=== PATIENT | female | born 1955 | race Caucasian/White ===

== ENCOUNTER → 2017-05-06 | Outpatient (CLI) | payer OTHER ==
[2017-05-06 12:57] LABS: CHOLESTEROL/HDL RATIO 3.1
== END | disposition home or self-care (01) ==
LOC: C.LABPBG 09:27
PROVIDERS: ATTEND Family Medicine
DX: Z13.220 Encounter for screening for lipoid disorders (principal)

== ENCOUNTER → 2017-07-01 | Outpatient (CLI) | payer OTHER | END | disposition home or self-care (01) | LOC: C.PAPS 16:43 | PROVIDERS: ATTEND Obstetrics & Gynecology | DX: Z12.4 Encounter for screening for malignant neoplasm of cervix (principal) ==

== ENCOUNTER 2021-01-21 09:57 | Observation (INO) ==
[2021-01-21 11:06] LABS: Hematocrit (blood only) 34.2 % (37-47); Hemoglobin 12.5 g/dL (12.0-16.0); Immature Granulocytes # (auto) 0.02 K/uL (0.00-0.02); Immature Granulocytes % (auto) 0.2 %; Lymphocytes # (auto) 0.63 K/uL (1.2-3.4); Lymphocytes % (auto) 6.7 %; Mean Corpuscular Hemoglobin 31.3 pg (25-34); Mean Corpuscular Hgb Conc 36.5 g/dL (32-36); Mean Corpuscular Volume 85.7 fL (80-100); Mean Platelet Volume 9.2 fL (7.4-10.4); Monocytes # (auto) 0.35 K/uL (0.11-0.59); Monocytes % (auto) 3.7 %; Neutrophils # (auto) 8.46 K/uL (1.4-6.5); Neutrophils % (auto) 89.4 %; Platelet Count 325 K/uL (130-400); RDW Coefficient of Variation 12.7 % (11.5-14.5); RDW Standard Deviation 40.4 fL (36.4-46.3); Red Blood Count 3.99 M/uL (4.2-5.4); White Blood Count 9.46 K/uL (4.8-10.8)
[2021-01-21 11:18] LABS: Partial Thromboplastin Time 26.8 Seconds (21.0-31.0); Prothrombin Time 10.3 Seconds (9.0-12.0)
[2021-01-21 11:20] LABS: D Dimer 1830 ug/L FEU (0-500)
[2021-01-21 11:25] LABS: Alanine Aminotransferase 24 U/L (12-78); Aspartate Aminotransferase 16 U/L (15-37); BUN Creatinine Ratio 17.8 (10-20); Blood Urea Nitrogen 16 mg/dl (7-18); Calcium 8.5 mg/dl (8.5-10.1); Carbon Dioxide 21 mmol/L (21-32); Chloride 105 mmol/L (98-107); Creatinine Clr Calc Pharmacy 54.1 ml/min; Est GFR (Non-African American) 69.9; Glucose 91 mg/dl (70-99); Magnesium 2.1 mg/dl (1.8-2.4); Potassium 3.7 mmol/L (3.5-5.1); Sodium 134 mmol/L (136-145)
[2021-01-21 11:30] LABS: Albumin Globulin Ratio 0.7 (0.9-2); Alkaline Phosphatase 52 U/L (45-117); Bilirubin,Total 1.1 mg/dl (0.2-1); Ferritin 480.3 ng/ml (8-388); Globulin 4.5 gm/dl (2.5-4.0); Total Protein 7.5 gm/dl (6.4-8.2); Troponin I < 0.015 ng/ml (0-0.045)
[2021-01-21] MEDS ORDERED: OPTIRAY 350 500ml IV ONE (11:44)
--- NOTE | 2021-01-21 12:06 | CT Scan Report ---
CT ANGIOGRAPHY OF THE CHEST, PULMONARY EMBOLUS PROTOCOL CLINICAL HISTORY: Shortness of breath. Cough. Covid. COMPARISON STUDY: Chest CT September 11, 2019. TECHNIQUE: Following IV administration of 114 mL of Optiray, helical axial images of the chest were o btained utilizing the pulmonary embolus protocol. Maximal intensity projections and sagittal and cor onal reformats were viewed on an independent 3D workstation. IV contrast was administered without co mplication. Automated exposure control was utilized for the study. A dose lowering technique was ut ilized adhering to the principles of ALARA. CT DOSE: 434.25 mGycm FINDINGS: No pulmonary emboli are identified. The size of the heart is normal. There is no pericardi al effusion. No thoracic aortic dissection is present. There is no pneumothorax or pleural effusion. The central airways are patent. Mildly enlarged right hilar lymph nodes are likely reactive. Moderate to extensive airspace opacities are noted throughout the lungs with a lower lobe predominance. There is no cavitation. Hepatic lesions were present on prior exam. These are likely benign. IMPRESSION: 1. No pulmonary emboli identified. 2. Moderate to extensive airspace opacities suggestive of viral pneumonia. ACT 112: Negative or not required by law. Electronically signed by: Jackson Guerrero M.D. 01/21/2021 12:05 PM
[2021-01-21 12:13] LABS: Influenza A virus by PCR Negative (Neg); Influenza B virus by PCR Negative (Neg); RSV by PCR Negative (Neg)
[2021-01-21 12:28] LABS: SARS CoV2 RNA(COVID-19) InHosp POSITIVE (Negative)
--- NOTE | 2021-01-21 13:02 | Electrocardiogram Report ---
Test Reason : Blood Pressure : / mmHG Vent. Rate : 079 BPM Atrial Rate : 079 BPM P-R Int : 142 ms QRS Dur : 072 ms QT Int : 376 ms P-R-T Axes : 058 035 048 degrees QTc Int : 431 ms Sinus rhythm with Premature supraventricular complexes Low voltage QRS Borderline ECG When compared with ECG of 23-JUN-2018 22:51, Premature supraventricular complexes are now Present Confirmed by Kulwinder Casey ([id number]) on 01/21/2021 1:02:31 PM Referred By: Confirmed By:Kulwinder Casey
--- NOTE | 2021-01-21 15:18 | History & Physical Report ---
Date of Service January 21, 2021 Assessment & Plan (1) Pneumonia due to COVID-19 virus: Continue dexamethasone 6 mg IV daily (started 01/15 and already had dose today) - no significant hypoxia at rest but given elevated CRP and chest pain would warrant this. Not a candidate for Tocilizumab given limited hypoxia Not a candidate for remdesivir given duration of illness Isolation precautions Encourage self proning as much as tolerable - discussed with patient (2) Hypoxia: Mild only on exertion. Possible need for 6 minute walk prior to discharge. Aim O2 sats > 90%. Nocturnal pulse oximetry ordered to assess need for home O2. (3) Asthma: No acute exacerbation suspected Albuterol PRN for cough or shortness of breath (4) Obstructive sleep apnea: Not on CPAP, diagnosed many years ago when patient weighed more. (5) GERD (gastroesophageal reflux disease): Continue pantoprazole 40 mg PO daily (6) Depression: Continue citalopram mg PO HS and bupropion mg PO QAM (7) Ulcerative colitis: Stable. Continue mesalamine mg PO QID (8) DVT prophylaxis: Lovenox 40 mg SQ twice daily Admission and Anticipated Discharge Date Admission Date: January 21, 2021 History of Present Illness Chief Complaint: Cough, chest pain, shortness of breath, fatigue. Known COVID- 19. Primary Care Provider: DO Mell Lynn Maricarmen is a 65-year-old female who presents to the ER with COVID-19 with main concern of chest pain, cough, fatigue and ongoing shortness of breath. She denies any ongoing fever, diarrhea, chills, loss of taste or smell. She reports her appetite is good. Symptoms started 01/08, tested positive for COVID-19 on 01/09. Seen in ER 01/15 and started on dexamethasone and has been staking this daily including this morning. Took course of azithromycin from her PCP started 01/16 (finished last dose today). Only mild improvement with albuterol inhaler. Usually only has asthma exacerbations < once/year. Chest pain on inspiration only, centre of chest, throughout most of her illness, worse on coughing, not completely reproducible. In the ER CT chest angiogram showed moderate to extensive airspace opacities suggestive of viral pneumonia. Procalcitonin negative. No hypoxia at rest but patient was hypoxic to mid 80s on exertion. Given hypoxia on exertion she was referred to medicine for admission and ongoing management for COVID-19 pneumonia. Allergies Allergy/AdvReac Type Severity Reaction Status Date / Time amitriptyline Allergy Nausea, Verified 01/21/21 11:32 vomiting, dizziness. azathioprine AdvReac Verified 01/21/21 11:32 Home Medications Medication Instructions Recorded Confirmed Type tretinoin 0.025 % topical cream 1 appln TOPICAL DAILY gm 05/02/19 01/21/21 History clindamycin phosphate 1 % lotion 1 appln TOP BID #60 ml 02/16/20 01/21/21 Rx acyclovir 5 % topical ointment 1 appln TOP 5XD 4 Days #15 gm 02/29/20 01/21/21 Rx benzonatate 200 mg capsule 200 mg PO TID PRN #30 cap 01/16/21 01/21/21 Rx bupropion HCl 150 mg PO QAM 01/21/21 01/21/21 History citalopram 20 mg PO HS 01/21/21 01/21/21 History mesalamine 1,600 mg PO QID 01/21/21 01/21/21 History pantoprazole 40 mg PO DAILYBB 01/21/21 01/21/21 History spironolactone 150 mg PO HS 01/21/21 01/21/21 History Past Med/Surg History Medical History Acne vulgaris Asthma Deep vein thrombosis Depression Endometriosis GERD (gastroesophageal reflux disease) Hyperlipidemia Obstructive sleep apnea Osteoarthritis Postmenopausal atrophic vaginitis Ulcerative colitis Vitamin D deficiency Surgical History H/O laparoscopy History of colonoscopy History of dilatation and curettage S/P endometrial ablation S/P inguinal hernia repair R Family History Mother Coronary heart disease Diabetes Hypertension Myocardial infarction Brother Coronary heart disease Diabetes Brother Diabetes Sister Coronary heart disease Diabetes Hypertension Cerebral aneurysm Dementia Brother Diabetes Denies family history of Ovarian cancer Prostate cancer Breast cancer Colorectal cancer Social History Smoking Status: Former smoker Cigarettes Per Day: 20; Smoking End Date: 35 yrs ago; Number of Years Since Quit: 30; Second Hand Exposure: No; Hx Alcohol Use: Yes Alcohol type: wine Alcohol Intake Frequency: Monthly or Less Alcohol Intake Frequency Comment: social Hx Substance Use: No Preferred Language: [place] Communication Ability: Effective Visual Impairment: No Limitations Hearing Ability: Normal Personal Care Attendant Required: No Beliefs That Will Affect Care: None marital status: Current Living Situation: Alone current occupational status: unemployed Feels Safe at Home: Yes Childhood Exposure to Second-Hand Smoke: Yes caffeine: No during the past year weight has: decreased > 10 lbs Dental Care, Regularly: Yes Physical Activity Frequency: Does not Exercise Seatbelt Use: always Sunscreen Use: No Assistive Devices: None Review of Systems Review of Systems: All systems reviewed & are unremarkable except as noted in HPI & below Physical Exam Constitutional: WD/WN, vitals as above Eyes: + anicteric sclerae; normal pupil size ENMT: external ear and nose normal, oropharynx normal Neck: trachea midline Respiratory: + abnormal respiratory effort (poor due to coughing and chest pain) Auscultation: + crackles; no wheezes Cardiovascular: RRR, no murmur, no edema Gastrointestinal (Abdomen): normal bowel sounds, soft, nontender, no hepatosplenomegaly Musculoskeletal: no cyanosis or clubbing, extremities motor strength 5/5 Skin: no rashes, warm and dry Neurologic: moves all extremities and awake; not confused Psychiatric: A+Ox3, euthymic affect Results & Data Results & Data ([facility]) Vital Signs (Past 12 Hours) Vital Signs Temp Pulse Pulse Resp Resp Resp Resp 01/21/21 14:30 65 19 01/21/21 14:00 73 24 01/21/21 13:30 69 21 01/21/21 13:00 68 75 24 25 H 24 20 01/21/21 12:30 68 22 01/21/21 12:00 75 25 H 01/21/21 11:30 79 21 01/21/21 11:10 01/21/21 11:00 81 21 01/21/21 10:46 83 27 H 01/21/21 10:02 36.7 C 86 18 BP Pulse Ox Pulse Ox Pulse Ox Pulse Ox 01/21/21 14:30 93/62 L 94 01/21/21 14:00 103/58 L 93 01/21/21 13:30 94/62 L 94 01/21/21 13:00 95/59 L 94 86 L 93 94 01/21/21 12:30 101/60 94 01/21/21 12:00 104/65 93 01/21/21 11:30 95/66 L 01/21/21 11:10 90 01/21/21 11:00 92/61 L 92 01/21/21 10:46 99/67 L 93 01/21/21 10:02 106/[address] ANGIOGRAPHY OF THE CHEST, PULMONARY EMBOLUS PROTOCOL IMPRESSION: 1. No pulmonary emboli identified. 2. Moderate to extensive airspace opacities suggestive of viral pneumonia. Medications Administered ER medications given: None ECG Indication: SOB/dyspnea Rate (beats per minute): 79 Rhythm: normal sinus and other (Premature supraventricular complexes) Comparison ECG Date: from (January 15, 2021) Change: the following changes noted (Premature supraventricular complexes now present) Code Status & VTE Plan Code Status Full VTE Prophylaxis Plan VTE Prophylaxis will be ordered: Yes PG Care Time/CCT Total # of Minutes Spent Total Time Spent with Patient: Total time spent is greater than 50% in coordination of care (as documented) at patient's floor/unit and/or counseling patient: Coding Level of Care Code 50818 OBS Care - Level 3 Diagnoses Pneumonia due to COVID-19 virus U07.1; J12.82 Hypoxia R09.02 Asthma J45.20 Asthma severity: mild Asthma persistence: intermittent Asthma complication type: uncomplicated Obstructive sleep apnea G47.33 GERD (gastroesophageal reflux disease) K21.9 Depression F32.9 Ulcerative colitis K51.90 DVT prophylaxis Z29.9 (1) Asthma Asthma severity: mild Asthma persistence: intermittent Asthma complication type: uncomplicated Qualified Code(s): J45.20 - Mild intermittent asthma, uncomplicated
[2021-01-21] MEDS ORDERED: KETOROLAC TROMETHAMINE 15 MG/ML VIAL IV STA (15:44)
[2021-01-21] MEDS ORDERED: KETOROLAC TROMETHAMINE 15 MG/ML VIAL IV PRN (17:44)
[2021-01-21] MEDS ORDERED: POLYETHYLENE (MIRALAX) 17 GM PACK PO PRN (17:44)
[2021-01-21] MEDS ORDERED: ONDANSETRON INJ 2 MG/ML 2 ML VIAL IV PRN (17:44)
[2021-01-21] MEDS ORDERED: ACETAMINOPHEN 325 MG TAB PO PRN (17:44)
[2021-01-21] MEDS: BENZONATATE 100 MG CAPSULE PO PRN (18:25)
[2021-01-21] MEDS: CITALOPRAM 20 MG TAB PO SCH (21:38)
[2021-01-21] MEDS: MESALAMINE 400 MG CAPDR PO SCH (21:38)
[2021-01-21] MEDS: ENOXAPARIN INJ 40 MG/0.4 ML SYR SQ SCH (21:38)
[2021-01-22] MEDS: BENZONATATE 100 MG CAPSULE PO PRN ×3 (00:05→17:53)
[2021-01-22] MEDS: PANTOprazole 40 MG TAB PO SCH (06:06)
[2021-01-22] MEDS: MESALAMINE 400 MG CAPDR PO SCH ×5 (07:21→21:51)
[2021-01-22] MEDS: ENOXAPARIN INJ 40 MG/0.4 ML SYR SQ SCH ×2 (09:10→21:50)
[2021-01-22] MEDS: buPROPion XL 150 MG TABCR PO SCH (09:11)
[2021-01-22 09:56] LABS: Appearance Urine Clear (Clear); Bacteria Urine Automated Negative (Negative); Bilirubin Urine Negative (Negative); Blood Urine Negative (Negative); Color Urine Dark Yellow; Epithelial Cell Urine Auto >30 /lpf (0-5); Glucose Urine UA Negative (Negative); Ketones Urine Trace (Negative); Leukocyte Esterase Urine Negative (Negative); Nitrite Urine Negative (Negative); Protein Urine 1+ (Negative); Specific Gravity Urine > 1.045 (1.000-1.030); Urobilinogen Urine Negative (Negative)
[2021-01-22] MEDS: ZINC SULFATE 220 MG CAPSULE PO SCH (10:55)
[2021-01-22] MEDS: dexAMETHasone 6 MG in SYRINGE 0 ML IV SCH ×3 (10:55→21:51)
[2021-01-22] MEDS: CHOLECALCIFEROL 1,000 UNITS 25 MCG TAB PO SCH (10:55)
[2021-01-22] MEDS: ASCORBIC ACID 500 MG TAB PO SCH (10:55)
[2021-01-22] MEDS: BUDESONIDE 0.5 MG/2 ML VIAL (PULMICORT) NEB SCH ×2 (11:45→20:07)
--- NOTE | 2021-01-22 12:15 | Hospitalist Progress Note ---
Date of Service January 22, 2021 Assessment & Plan (1) Pneumonia due to COVID-19 virus: Increase dexamethasone 6 mg IV q6h. add budesonide nebulizers. Vitamin A/D/zinc trio Not a candidate for Tocilizumab given limited hypoxia Not a candidate for remdesivir given duration of illness Isolation precautions Encourage self proning as much as tolerable as needed (2) Asthma: Stable. No audible wheezing at this time (3) Obstructive sleep apnea: Not on CPAP, diagnosed many years ago when patient weighed more. (4) GERD (gastroesophageal reflux disease): PPI therapy (5) Depression: Treated with bupropion and citalopram (6) Hyperlipidemia: Treated with diet (7) Ulcerative colitis: Treated with mesalamine therapy (8) Hypoxia: Acute hypoxic respiratory failure noted on admission. Currently not requiring any oxygen. Will monitor oxygen saturation on room air and use supplemental oxygen per nasal cannula as needed (9) DVT prophylaxis: Lovenox 40 mg SQ twice daily Disposition: Eventual discharge to home Admission and Anticipated Discharge Date Admission Date: January 21, 2021 Subjective Dry cough and short of breath at rest. She currently is not requiring oxygen. Parenteral steroid dosing increased and budesonide nebulizers added. We will repeat chest x-ray tomorrow. Discharge date depends on how fast she responds steroid therapy. Review of Systems Review of Systems: All systems reviewed & are unremarkable except as noted in HPI & below Physical Exam Physical Exam: General-alert and oriented x3, no fevers, no chills HEENT-head atraumatic and normocephalic, TMs intact bilaterally, pupils equal and reactive to light, extraocular muscles intact Neck-no lymphadenopathy or thyromegaly, trachea midline Chest-dry cough. Adventitious breath sounds bilaterally. Mildly tachypneic at rest. No wheezing Cardiac-regular rate and rhythm, normal S1 and S2 Abdomen-normal bowel sounds, nontender, no hepatosplenomegaly Extremities-no cyanosis, clubbing, or edema Neuro-cranial nerves II through XII intact, motor and sensory function within normal limits, strength symmetrical , no focal deficits Psych-normal affect, normal mood Results & Data Results & Data ([facility]) Vital Signs (Past 12 Hours) Vital Signs Temp Pulse Pulse Pulse Pulse Resp Resp 01/22/21 11:46 64 20 01/22/21 09:23 36.8 C 76 18 01/22/21 07:00 83 78 77 18 Resp Resp BP Pulse Ox Pulse Ox Pulse Ox Pulse Ox 01/22/21 11:46 95 01/22/21 09:23 86/52 L 95 01/22/21 07:00 18 18 92 93 93 Laboratory Results 01/21/21 10:53 01/21/21 10:53 PG Care Time/CCT Total # of Minutes Spent Total Time Spent with Patient: Total time spent is greater than 50% in coordination of care (as documented) at patient's floor/unit and/or counseling patient: Coding Level of Care Code 79547 Subseq Hosp Care Lvl 3 Diagnoses Pneumonia due to COVID-19 virus U07.1; J12.82 Asthma J45.909 Obstructive sleep apnea G47.33 GERD (gastroesophageal reflux disease) K21.9 Depression F32.9 Hyperlipidemia E78.5 Ulcerative colitis K51.90 Hypoxia R09.02 DVT prophylaxis Z29.9
--- NOTE | 2021-01-22 16:43 | Emergency Department Note ---
Impression & Plan Pneumonia due to COVID-19 virus, Hypoxia ED Provider Note NAME: HERMES PALAFOX AGE: 65 SEX: F : 1955 ARRIVES VIA: Walk-In INFORMANT: Patient, ED PROVIDER(S): Davidson Freitas MD CHIEF COMPLAINT: Covid + HPI: This 65-year-old female who presents emergency department with Covid pneumonia. The patient reports that she tested positive for Covid approximately 12 days ago at [facility]. She reports at that time she was not admitted. She was placed on steroids and given an albuterol inhaler. She r eports anytime that she walks she becomes extremely short of breath. She reports rest makes the shortness of breath better. She has been using the steroids and inhaler without significant relief of her symptoms. The patient also is reporting a cough . ROS: See above HPI for pertinent positives & negatives. A total of 10 systems reviewed and were otherwise negative. PAST MEDICAL HISTORY: See Below PAST SURGICAL HISTORY: See Below FAMILY HISTORY: See Below SOCIAL HISTORY: See Below HOME MEDICATIONS: See Below ALLERGIES: See Below VITALS: See Below PHYSICAL EXAMINATION: VITAL SIGNS - Vital signs and nursing notes were reviewed. GENERAL - 65-year-old female appearing stated age who is in no acute distress, coughing on exam. Communicates well with provider and answers questions appropriately. SKIN - Without rashes. HEAD - NC/AT. EYES - PERRL with EOMI bilaterally. Sclera anicteric. Palpebral conjunctiva pink and moist with no injection noted. EARS - No deformities of external structures noted on gross examination bilaterally. NOSE - Midline and without cyanosis. No epistaxis or purulent drainage noted. Septum midline without deviation or septal hematoma noted. MOUTH/OROPHARYNX - Without perioral cyanosis. Buccal mucosa pink and moist and without leukoplakia. Tongue midline with equal elevation of palate bilaterally. No tonsillar hypertrophy, erythema, or exudates noted. NECK - Neck with FROM. Supple to palpation. No nuchal rigidity. LUNGS - Chest wall symmetric without accessory muscle use, intercostals retractions, or central cyanosis. Normal vesicular breath sounds CTA B/L. No wheezes, rales, or rhonchi appreciated. CARDIAC - RRR with S1/S2. No murmur, rubs, or gallops appreciated. ABDOMEN - Abdominal contour without pulsations or visible masses. BS normoactive all four quadrants. No tenderness, palpable masses, hepatospleno megaly, or ascites noted. EXTREMITIES - No clubbing or peripheral cyanosis. No pretibial edema present. +3/5 radial, posterior tibial, and dorsalis pedis pulses palpated throughout. +5/5 strength noted in UE/LE bilaterally. NEUROLOGIC - Cranial nerves II through XII grossly intact. Sensory intact to light touch throughout. Patellar reflexes +2/4. PSYCH - A&Ox3 and cooperates fully with examiner. Pt is very pleasant and interacts well with examiner. MEDICAL DECISION MAKING: Patient was seen and evaluated as above in room C5. Review was performed of nursing notes and vital signs. I did review pertinent previous visits and patient history. After obtaining a thorough history and physical examination the above work up was performed. This 65-year-old female who presents emergency department complaining of shortness of breath. The patient was recently diagnosed with Covid. She her Co vid test here is positive. She does have an elevation in her D-dimer. She was sent for CAT scan of the chest however this does not show any evidence of a PE. The patient was ambulated by nursing staff and again found to be hypoxic. She does not have an elevation in her white blood cell count or her troponin. Due to the fact that the patient is requiring oxygen I did discuss the case with the hospital service who did agree to admit the patient. While in the department, I personally reevaluated the patient several times and each time the patient was found to be resting comfortably. The patient was educated upon management, educated upon todays findings/results, educated upon importance of follow up from today's visit, educated upon symptoms in which to return, had questions answered prior to discharge, verbalized understanding, and was discharged home in good condition. An order was placed for continuous cardiac monitoring. The monitor shows a rate of 64 with Normal SInus rhythm. The patient was evaluated during a period of high volume and high acuity during the global COVID-19 pandemic, and that diagnosis was suspected/considered upon their initial presentation. Their evaluation, treatment and testing was consistent with current guidelines for patients who present with complaints or symptoms that may be related to COVID-19. Patient was seen while provider was wearing PPE. Triage Nursing notes reviewed. Prior medical records reviewed Vital Signs: reviewed and remarkable for no significant abnormalities Differential diagnosis: Reactive airway disease, pneumonia, pneumothorax, COPD, CHF, infections, cardiac ischemia, pulmonary embolism, musculoskeletal, gastrointestinal, as well as other pathologies. ER treatment provided: See below Diagnostics interpreted by me: ECG: Sinus rhythm with premature supraventricular complex no ST elevation or depression QTC is 431 ventricular rate of 79 EKG is compared to 06/23/2018 premature supraventricular complexes are now present Laboratory studies: As stated above and show below. Imaging studies: See below Consultation(s): Internal Medicine I have personally spent greater than 30 minutes of critical care time in the direct management of this patient. This includes bedside care, interpretation of diagnostic studies, and testing, discussion with consultants, patient, and family members, and other required patient management activities. This 30 minutes is in excess of all separately billable procedures. Past Med/Surg History Medical History (Updated 01/22/21 @ 16:49 by Davidson Freitas MD) Acne vulgaris Asthma Deep vein thrombosis Depression Endometriosis GERD (gastroesophageal reflux disease) Hyperlipidemia Obstructive sleep apnea Osteoarthritis Postmenopausal atrophic vaginitis Ulcerative colitis Vitamin D deficiency Surgical History H/O laparoscopy History of colonoscopy History of dilatation and curettage S/P endometrial ablation S/P inguinal hernia repair R Family History Mother Coronary heart disease Diabetes Hypertension Myocardial infarction Brother Coronary heart disease Diabetes Brother Diabetes Sister Coronary heart disease Diabetes Hypertension Cerebral aneurysm Dementia Brother Diabetes Denies family history of Ovarian cancer Prostate cancer Breast cancer Colorectal cancer Social History Smoking Status: Former smoker Cigarettes Per Day: 20; Smoking End Date: 35 yrs ago; Number of Years Since Quit: 30; Second Hand Exposure: No; Hx Alcohol Use: Yes Alcohol type: wine Alcohol Intake Frequency: Monthly or Less Alcohol Intake Frequency Comment: social Hx Substance Use: No Preferred Language: Cymraes Communication Ability: Effective Visual Impairment: No Limitations Hearing Ability: Normal Mexican [employer] Required: No Beliefs That Will Affect Care: None marital status: Current Living Situation: Alone current occupational status: unemployed Feels Safe at Home: Yes Childhood Exposure to Second-Hand Smoke: Yes caffeine: No during the past year weight has: decreased > 10 lbs Dental Care, Regularly: Yes Physical Activity Frequency: Does not Exercise Seatbelt Use: always Sunscreen Use: No Assistive Devices: None Allergies Allergies Allergy/AdvReac Type Severity Reaction Status Date / Time amitriptyline Allergy Nausea, Verified 01/21/21 11:32 vomiting, dizziness. azathioprine AdvReac Verified 01/21/21 11:32 Home Meds Home Medications Medication Instructions Recorded Confirmed tretinoin 0.025 % topical cream 1 appln TOPICAL DAILY gm 05/02/19 01/21/21 bupropion HCl 150 mg PO QAM 01/21/21 01/21/21 citalopram 20 mg PO HS 01/21/21 01/21/21 mesalamine 1,600 mg PO QID 01/21/21 01/21/21 pantoprazole 40 mg PO DAILYBB 01/21/21 01/21/21 spironolactone 150 mg PO HS 01/21/21 01/21/21 Previous Rx's Medication Instructions Recorded clindamycin phosphate 1 % lotion 1 appln TOP BID #60 ml 02/16/20 acyclovir 5 % topical ointment 1 appln TOP 5XD 4 Days #15 gm 02/29/20 benzonatate 200 mg capsule 200 mg PO TID PRN #30 cap 01/16/21 Results & Data (ED) Laboratory Data Result diagrams: 01/21/21 10:53 01/21/21 10:53 Lab Results 01/21/21 01/21/21 01/21/21 Range/Units 10:53 10:53 10:53 WBC 9.46 (4.8-10.8) K/uL RBC 3.99 L (4.2-5.4) M/uL Hgb 12.5 (12.0-16.0) g/dL Hct 34.2 L (37-47) % MCV 85.7 (80-100) fL MCH 31.3 (25-34) pg MCHC 36.5 H (32-36) g/dL RDW Std Deviation 40.4 (36.4-46.3) fL RDW Coeff of Yvette 12.7 (11.5-14.5) % Plt Count 325 (130-400) K/uL MPV 9.2 (7.4-10.4) fL Immature Gran % (Auto) 0.2 % Neut % (Auto) 89.4 % Lymph % (Auto) 6.7 % [place] % (Auto) 3.7 % Eos % (Auto) 0.0 % Baso % (Auto) 0.0 % Neut # (Auto) 8.46 H (1.4-6.5) K/uL Lymph # (Auto) 0.63 L (1.2-3.4) K/uL [place] # (Auto) 0.35 (0.11-0.59) K/uL Eos # (Auto) 0.00 (0-0.5) K/uL Baso # (Auto) 0.00 (0-0.2) K/uL Immature Gran # (Auto) 0.02 (0.00-0.02) K/uL ESR 50 H (0-30) mm/hr PT (9.0-12.0) Seconds INR (0.9-1.1) APTT (21.0-31.0) Seconds PTT Ratio D-Dimer (0-500) ug/L FEU Sodium (136-145) mmol/L Potassium (3.5-5.1) mmol/L Chloride (98-107) mmol/L Carbon Dioxide (21-32) mmol/L Anion Gap (3-11) BUN (7-18) mg/dl Creatinine (0.6-1.2) mg/dl Est Cr Clr Drug Dosing ml/min Est GFR ( Amer) Est GFR (Non-Af Amer) BUN/Creatinine Ratio (10-20) Glucose (70-99) mg/dl Lactate (0.4-2.0) mmol/L Calcium (8.5-10.1) mg/dl Magnesium (1.8-2.4) mg/dl Ferritin (8-388) ng/ml Total Bilirubin (0.2-1) mg/dl AST (15-37) U/L ALT (12-78) U/L Alkaline Phosphatase (45-117) U/L Lactate Dehydrogenase (84-246) U/L Troponin I (0-0.045) ng/ml C-Reactive Protein (0-0.29) mg/dl Total Protein (6.4-8.2) gm/dl Albumin (3.4-5.0) gm/dl Globulin (2.5-4.0) gm/dl Albumin/Globulin Ratio (0.9-2) Procalcitonin (0-0.5) ng/ml COVID-19 Eval Order SARS-CoV-2 (PCR) (Negative) Influenza Type A (PCR) (Neg) Influenza Type B (PCR) (Neg) RSV (RT-PCR) (Neg) Blood Type O Positive Antibody Screen NEGATIVE 01/21/21 01/21/21 01/21/21 Range/Units 10:53 10:53 10:53 WBC (4.8-10.8) K/uL RBC (4.2-5.4) M/uL Hgb (12.0-16.0) g/dL Hct (37-47) % MCV (80-100) fL MCH (25-34) pg MCHC (32-36) g/dL RDW Std Deviation (36.4-46.3) fL RDW Coeff of Yvette (11.5-14.5) % Plt Count (130-400) K/uL MPV (7.4-10.4) fL Immature Gran % (Auto) % Neut % (Auto) % Lymph % (Auto) % [place] % (Auto) % Eos % (Auto) % Baso % (Auto) % Neut # (Auto) (1.4-6.5) K/uL Lymph # (Auto) (1.2-3.4) K/uL [place] # (Auto) (0.11-0.59) K/uL Eos # (Auto) (0-0.5) K/uL Baso # (Auto) (0-0.2) K/uL Immature Gran # (Auto) (0.00-0.02) K/uL ESR (0-30) mm/hr PT 10.3 (9.0-12.0) Seconds INR 1.0 (0.9-1.1) APTT 26.8 (21.0-31.0) Seconds PTT Ratio 1.0 D-Dimer 1830 H* (0-500) ug/L FEU Sodium 134 L (136-145) mmol/L Potassium 3.7 (3.5-5.1) mmol/L Chloride 105 (98-107) mmol/L Carbon Dioxide 21 (21-32) mmol/L Anion Gap 8.0 (3-11) BUN 16 (7-18) mg/dl Creatinine 0.88 (0.6-1.2) mg/dl Est Cr Clr Drug Dosing 54.1 ml/min Est GFR ( Amer) 81.0 Est GFR (Non-Af Amer) 69.9 BUN/Creatinine Ratio 17.8 (10-20) Glucose 91 (70-99) mg/dl Lactate 1.2 (0.4-2.0) mmol/L Calcium 8.5 (8.5-10.1) mg/dl Magnesium 2.1 (1.8-2.4) mg/dl Ferritin 480.3 H (8-388) ng/ml Total Bilirubin 1.1 H (0.2-1) mg/dl AST 16 (15-37) U/L ALT 24 (12-78) U/L Alkaline Phosphatase 52 (45-117) U/L Lactate Dehydrogenase (84-246) U/L Troponin I < 0.015 (0-0.045) ng/ml C-Reactive Protein 5.70 H (0-0.29) mg/dl Total Protein 7.5 (6.4-8.2) gm/dl Albumin 3.0 L (3.4-5.0) gm/dl Globulin 4.5 H (2.5-4.0) gm/dl Albumin/Globulin Ratio 0.7 L (0.9-2) Procalcitonin (0-0.5) ng/ml COVID-19 Eval Order SARS-CoV-2 (PCR) (Negative) Influenza Type A (PCR) (Neg) Influenza Type B (PCR) (Neg) RSV (RT-PCR) (Neg) Blood Type Antibody Screen 01/21/21 01/21/21 01/21/21 Range/Units 10:53 10:53 11:05 WBC (4.8-10.8) K/uL RBC (4.2-5.4) M/uL Hgb (12.0-16.0) g/dL Hct (37-47) % MCV (80-100) fL MCH (25-34) pg MCHC (32-36) g/dL RDW Std Deviation (36.4-46.3) fL RDW Coeff of Yvette (11.5-14.5) % Plt Count (130-400) K/uL MPV (7.4-10.4) fL Immature Gran % (Auto) % Neut % (Auto) % Lymph % (Auto) % [place] % (Auto) % Eos % (Auto) % Baso % (Auto) % Neut # (Auto) (1.4-6.5) K/uL Lymph # (Auto) (1.2-3.4) K/uL [place] # (Auto) (0.11-0.59) K/uL Eos # (Auto) (0-0.5) K/uL Baso # (Auto) (0-0.2) K/uL Immature Gran # (Auto) (0.00-0.02) K/uL ESR (0-30) mm/hr PT (9.0-12.0) Seconds INR (0.9-1.1) APTT (21.0-31.0) Seconds PTT Ratio D-Dimer (0-500) ug/L FEU Sodium (136-145) mmol/L Potassium (3.5-5.1) mmol/L Chloride (98-107) mmol/L Carbon Dioxide (21-32) mmol/L Anion Gap (3-11) BUN (7-18) mg/dl Creatinine (0.6-1.2) mg/dl Est Cr Clr Drug Dosing ml/min Est GFR ( Amer) Est GFR (Non-Af Amer) BUN/Creatinine Ratio (10-20) Glucose (70-99) mg/dl Lactate (0.4-2.0) mmol/L Calcium (8.5-10.1) mg/dl Magnesium (1.8-2.4) mg/dl Ferritin (8-388) ng/ml Total Bilirubin (0.2-1) mg/dl AST (15-37) U/L ALT (12-78) U/L Alkaline Phosphatase (45-117) U/L Lactate Dehydrogenase 343 H (84-246) U/L Troponin I (0-0.045) ng/ml C-Reactive Protein (0-0.29) mg/dl Total Protein (6.4-8.2) gm/dl Albumin (3.4-5.0) gm/dl Globulin (2.5-4.0) gm/dl Albumin/Globulin Ratio (0.9-2) Procalcitonin < 0.05 (0-0.5) ng/ml COVID-19 Eval Order CovFluRsv at [facility] SARS-CoV-2 (PCR) (Negative) Influenza Type A (PCR) (Neg) Influenza Type B (PCR) (Neg) RSV (RT-PCR) (Neg) Blood Type Antibody Screen 01/21/21 Range/Units 11:05 WBC (4.8-10.8) K/uL RBC (4.2-5.4) M/uL Hgb (12.0-16.0) g/dL Hct (37-47) % MCV (80-100) fL MCH (25-34) pg MCHC (32-36) g/dL RDW Std Deviation (36.4-46.3) fL RDW Coeff of Yvette (11.5-14.5) % Plt Count (130-400) K/uL MPV (7.4-10.4) fL Immature Gran % (Auto) % Neut % (Auto) % Lymph % (Auto) % [place] % (Auto) % Eos % (Auto) % Baso % (Auto) % Neut # (Auto) (1.4-6.5) K/uL Lymph # (Auto) (1.2-3.4) K/uL [place] # (Auto) (0.11-0.59) K/uL Eos # (Auto) (0-0.5) K/uL Baso # (Auto) (0-0.2) K/uL Immature Gran # (Auto) (0.00-0.02) K/uL ESR (0-30) mm/hr PT (9.0-12.0) Seconds INR (0.9-1.1) APTT (21.0-31.0) Seconds PTT Ratio D-Dimer (0-500) ug/L FEU Sodium (136-145) mmol/L Potassium (3.5-5.1) mmol/L Chloride (98-107) mmol/L Carbon Dioxide (21-32) mmol/L Anion Gap (3-11) BUN (7-18) mg/dl Creatinine (0.6-1.2) mg/dl Est Cr Clr Drug Dosing ml/min Est GFR ( Amer) Est GFR (Non-Af Amer) BUN/Creatinine Ratio (10-20) Glucose (70-99) mg/dl Lactate (0.4-2.0) mmol/L Calcium (8.5-10.1) mg/dl Magnesium (1.8-2.4) mg/dl Ferritin (8-388) ng/ml Total Bilirubin (0.2-1) mg/dl AST (15-37) U/L ALT (12-78) U/L Alkaline Phosphatase (45-117) U/L Lactate Dehydrogenase (84-246) U/L Troponin I (0-0.045) ng/ml C-Reactive Protein (0-0.29) mg/dl Total Protein (6.4-8.2) gm/dl Albumin (3.4-5.0) gm/dl Globulin (2.5-4.0) gm/dl Albumin/Globulin Ratio (0.9-2) Procalcitonin (0-0.5) ng/ml COVID-19 Eval Order SARS-CoV-2 (PCR) POSITIVE A* (Negative) Influenza Type A (PCR) Negative (Neg) Influenza Type B (PCR) Negative (Neg) RSV (RT-PCR) Negative (Neg) Blood Type Antibody Screen Administered Medications Ascorbic Acid (Ascorbic Acid 500 Mg Tab) 500 mg PO [facility] Stop: 02/21/21 09:59 Last Admin: 01/22/21 10:55 Dose: 500 mg Documented by: [id number] Benzonatate (Benzonatate 100 Mg Capsule) 200 mg PO TID PRN PRN Reason: cough Stop: 02/20/21 17:43 Last Admin: 01/22/21 06:06 Dose: 200 mg Documented by: [id number] Admin: 01/22/21 00:05 Dose: 200 mg Documented by: [id number] Admin: 01/21/21 18:25 Dose: 200 mg Documented by: [id number] Budesonide (Budesonide 0.5 Mg/2 Ml Vial (Pulmicort)) 1 mg NEB BIDR [facility] Stop: 02/21/21 09:59 Last Admin: 01/22/21 11:45 Dose: 1 mg Documented by: [id number] Bupropion HCl (Bupropion Xl 150 Mg Tabcr) [facility] [place]: 02/21/21 08:59 Last Admin: 01/22/21 09:11 Dose: 150 mg Documented by: [id number] Citalopram Hydrobromide (Citalopram 20 Mg Tab) 20 mg PO HS [facility] Stop: 02/20/21 20:59 Last Admin: 01/21/21 21:38 Dose: 20 mg Documented by: [id number] Enoxaparin Sodium (Enoxaparin Inj 40 Mg/0.4 Ml Syr) 40 mg SQ BID [facility] Stop: 02/20/21 20:59 Last Admin: 01/22/21 09:10 Dose: 40 mg Documented by: [id number] Admin: 01/21/21 21:38 Dose: 40 mg Documented by: [id number] Dexamethasone 6 mg/ Syringe 1.5 mls @ 1 mls/min IV Q6H [facility] Stop: 02/21/21 09:59 Last Admin: 01/22/21 16:37 Dose: 1 mls/min Documented by: [id number] Admin: 01/22/21 10:55 Dose: 1 mls/min Documented by: [id number] Ketorolac Tromethamine (Ketorolac Tromethamine 15 Mg/Ml Vial) 15 mg IV Q6H PRN PRN Reason: Pain Stop: 01/26/21 17:43 Last Admin: 01/22/21 06:10 Dose: 15 mg Documented by: [id number] Mesalamine (Mesalamine 400 Mg Capdr) 1,600 mg PO QID [facility] Stop: 02/20/21 17:43 Last Admin: 01/22/21 16:35 Dose: 1,600 mg Documented by: [id number] Admin: 01/22/21 12:58 Dose: 1,600 mg Documented by: [id number] Admin: 01/22/21 09:10 Dose: 1,600 mg Documented by: [id number] Admin: 01/22/21 07:21 Dose: Not Given Documented by: [id number] Admin: 01/21/21 21:38 Dose: 1,600 mg Documented by: [id number] Miscellaneous (Tretinoin: Order Awaiting Action) 1 ea N/A QS [facility] Stop: 02/21/21 00:00 Last Admin: 01/22/21 07:21 Dose: Not Given Documented by: [id number] Admin: 01/22/21 00:01 Dose: Not Given Documented by: [id number] Pantoprazole Sodium (Pantoprazole 40 Mg Tab) 40 mg PO DAILYBB [facility] Stop: 02/21/21 06:29 Last Admin: 01/22/21 06:06 Dose: 40 mg Documented by: [id number] Vitamin D (Cholecalciferol 1,000 Units 25 Mcg Tab) 1,000 units PO QAM [facility] Stop: 02/21/21 09:59 Last Admin: 01/22/21 10:55 Dose: 1,000 units Documented by: [id number] Zinc Sulfate (Zinc Sulfate 220 Mg Capsule) 220 mg PO QAM [facility] Stop: 02/21/21 09:59 Last Admin: 01/22/21 10:55 Dose: 220 mg Documented by: [id number] Discontinued Medications Ioversol (Optiray 350 500ml) 114 ml IV ONCE ONE Stop: 01/21/21 11:45 Last Admin: 01/21/21 11:48 Dose: 114 ml Documented by: [id number] Ketorolac Tromethamine (Ketorolac Tromethamine 15 Mg/Ml Vial) 15 mg IV NOW STA Stop: 01/21/21 15:45 Last Admin: 01/21/21 16:51 Dose: 15 mg Documented by: [id number] Discharge Plan Visit Data Chief Complaint: Shortness of Breath/Dyspnea Stated Complaint: COVID +, PNX, NOT GETTING BETTER ED Provider: Davidson Freitas Discharge Problem: Pneumonia due to COVID-19 virus, Hypoxia Patient Disposition: Admitted As Inpatient Discharge Instructions Interventions: ED Discharge Assessment Last Done: 01/21/21 17:00
[2021-01-22] MEDS: CITALOPRAM 20 MG TAB PO SCH (21:51)
[2021-01-23] MEDS: BENZONATATE 100 MG CAPSULE PO PRN (01:57)
[2021-01-23] MEDS: dexAMETHasone 6 MG in SYRINGE 0 ML IV SCH ×2 (04:55→11:50)
[2021-01-23] MEDS: PANTOprazole 40 MG TAB PO SCH (06:19)
[2021-01-23] MEDS: BUDESONIDE 0.5 MG/2 ML VIAL (PULMICORT) NEB SCH (07:09)
[2021-01-23 07:24] LABS: Basophils # (auto) 0.01 K/uL (0-0.2); Basophils % (auto) 0.1 %; Hematocrit (blood only) 35.8 % (37-47); Hemoglobin 12.8 g/dL (12.0-16.0); Immature Granulocytes # (auto) 0.02 K/uL (0.00-0.02); Immature Granulocytes % (auto) 0.3 %; Lymphocytes # (auto) 0.87 K/uL (1.2-3.4); Lymphocytes % (auto) 12.7 %; Mean Corpuscular Hemoglobin 30.5 pg (25-34); Mean Corpuscular Hgb Conc 35.8 g/dL (32-36); Mean Corpuscular Volume 85.4 fL (80-100); Mean Platelet Volume 9.6 fL (7.4-10.4); Monocytes # (auto) 0.28 K/uL (0.11-0.59); Monocytes % (auto) 4.1 %; Neutrophils # (auto) 5.68 K/uL (1.4-6.5); Neutrophils % (auto) 82.8 %; Platelet Count 358 K/uL (130-400); RDW Coefficient of Variation 12.7 % (11.5-14.5); RDW Standard Deviation 39.8 fL (36.4-46.3); Red Blood Count 4.19 M/uL (4.2-5.4); White Blood Count 6.86 K/uL (4.8-10.8)
[2021-01-23 07:59] LABS: BUN Creatinine Ratio 24.6 (10-20); Calcium 9.3 mg/dl (8.5-10.1); Creatinine Clr Calc Pharmacy 61.1 ml/min; Est GFR (African American) 93.8; Est GFR (Non-African American) 80.9
--- NOTE | 2021-01-23 08:24 | XRay Report ---
XR chest 1V portable HISTORY: coronavirus pneumonia COMPARISON: Chest CTA 01/21/2021. FINDINGS: No pneumothorax. No pleural effusions. The heart is normal in size. No change in the patchy peripheral airspace opacities seen within the bilateral mid to lower lung zones. No evidence for pul monary edema. IMPRESSION: No change in the patchy peripheral airspace opacities seen within the bilateral mid to lower lung zon es. This is consistent with a viral pneumonia. ACT 112: Negative or not required by law. Electronically signed by: Dario Tolbert M.D. 01/23/2021 8:23 AM
[2021-01-23] MEDS: ASCORBIC ACID 500 MG TAB PO SCH (08:49)
[2021-01-23] MEDS: ZINC SULFATE 220 MG CAPSULE PO SCH (08:49)
[2021-01-23] MEDS: CHOLECALCIFEROL 1,000 UNITS 25 MCG TAB PO SCH (08:49)
[2021-01-23] MEDS: buPROPion XL 150 MG TABCR PO SCH (08:49)
[2021-01-23] MEDS: MESALAMINE 400 MG CAPDR PO SCH (08:49)
[2021-01-23] MEDS: ENOXAPARIN INJ 40 MG/0.4 ML SYR SQ SCH (08:49)
--- NOTE | 2021-01-23 10:56 | Hospitalist Progress Note ---
Date of Service January 23, 2021 Assessment & Plan (1) Pneumonia due to COVID-19 virus: Treated with dexamethasone 6 mg IV every 6 hours and budesonide nebulizers. Improved Not a candidate for Tocilizumab given limited hypoxia Not a candidate for remdesivir given duration of illness Isolation precautions Encourage self proning as much as tolerable - discussed with patient (2) Hypoxia: Acute hypoxic respiratory failure was present on admission. This has resolved. She is now on room air (3) Asthma: No acute exacerbation suspected Albuterol PRN for cough or shortness of breath (4) Obstructive sleep apnea: Not on CPAP, diagnosed many years ago when patient weighed more. (5) GERD (gastroesophageal reflux disease): Continue pantoprazole 40 mg PO daily (6) Depression: Continue citalopram mg PO HS and bupropion mg PO QAM (7) Ulcerative colitis: Stable. Continue mesalamine mg PO QID (8) DVT prophylaxis: Lovenox 40 mg SQ twice daily Disposition: Discharged to home today, January 23, on tapering dose of oral prednisone. She will continue to take vitamin C, vitamin D, and zinc until her Covid symptoms are completely resolved. Admission and Anticipated Discharge Date Admission Date: January 21, 2021 Subjective Alert and oriented. She is on room air. She still has a nonproductive cough but is stable enough to go home on a tapering dose of Decadron. She will continue to take vitamin C, vitamin D, and zinc. She will follow-up with her primary care provider within 1 week. Review of Systems Review of Systems: All systems reviewed & are unremarkable except as noted in HPI & below Physical Exam Physical Exam: General-alert and oriented x3, no fevers, no chills HEENT-head atraumatic and normocephalic, pupils equal and reactive to light, extraocular muscles intact Neck-no lymphadenopathy or thyromegaly, trachea midline Chest-dry inspiratory rales bilaterally. No dullness to percussion. No wheezing Cardiac-regular rate and rhythm, normal S1 and S2 Abdomen-normal bowel sounds, nontender, no hepatosplenomegaly Extremities-no cyanosis, clubbing, or edema Neuro-cranial nerves II through XII intact, motor and sensory function within normal limits, strength symmetrical , no focal deficits Psych-normal affect, normal mood Results & Data Results & Data ([facility]) Vital Signs (Past 12 Hours) Vital Signs Temp Pulse Resp BP BP Pulse Ox 01/23/21 08:47 36.6 C 72 18 102/67 95 01/23/21 07:10 62 18 94 01/23/21 00:49 36.7 C 64 20 99/61 L 93 Laboratory Results 01/23/21 06:50 01/23/21 06:50 PG Care Time/CCT Total # of Minutes Spent Total Time Spent with Patient: Total time spent is greater than 50% in coordination of care (as documented) at patient's floor/unit and/or counseling patient: Coding Level of Care Code 78311 Subseq Hosp Care Lvl 3 Diagnoses Pneumonia due to COVID-19 virus U07.1; J12.82 Hypoxia R09.02 Asthma J45.20 Asthma severity: mild Asthma persistence: intermittent Asthma complication type: uncomplicated Obstructive sleep apnea G47.33 GERD (gastroesophageal reflux disease) K21.9 Depression F32.9 Ulcerative colitis K51.90 DVT prophylaxis Z29.9 (1) Asthma Asthma severity: mild Asthma persistence: intermittent Asthma complication type: uncomplicated Qualified Code(s): J45.20 - Mild intermittent asthma, uncomplicated
--- NOTE | 2021-01-23 13:19 | Discharge Summary ---
Date of Service January 23, 2021 Admission HPI Per Admitting Provider Mell Hernadez is a 65-year-old female who presents to the ER with COVID-19 with main concern of chest pain, cough, fatigue and ongoing shortness of breath. She denies any ongoing fever, diarrhea, chills, loss of taste or smell. She reports her appetite is good. Symptoms started 01/08, tested positive for COVID-19 on 01/09. Seen in ER 01/15 and started on dexamethasone and has been staking this daily including this morning. Took course of azithromycin from her PCP started 01/16 (finished last dose today). Only mild improvement with albuterol inhaler. Usually only has asthma exacerbations < once/year. Chest pain on inspiration only, centre of chest, throughout most of her illness, worse on coughing, not completely reproducible. In the ER CT chest angiogram showed moderate to extensive airspace opacities suggestive of viral pneumonia. Procalcitonin negative. No hypoxia at rest but patient was hypoxic to mid 80s on exertion. Given hypoxia on exertion she was referred to medicine for admission and ongoing management for COVID-19 pneumonia. Principal Diagnosis Covid pneumonia, acute hypoxic respiratory failure Discharge Data Allergies Allergy/AdvReac Type Severity Reaction Status Date / Time amitriptyline Allergy Nausea, Verified 01/21/21 11:32 vomiting, dizziness. azathioprine AdvReac Verified 01/21/21 11:32 Consultations 01/21/21 13:38 ED Decision to Admit Stat Ordered Studies 01/21/21 11:21 CT angio chest PE protocol Stat Hospital Course (1) Pneumonia due to COVID-19 virus: Treated with dexamethasone 6 mg IV every 6 hours and budesonide nebulizers. Improved Not a candidate for Tocilizumab given limited hypoxia Not a candidate for remdesivir given duration of illness Isolation precautions Encourage self proning as much as tolerable - discussed with patient (2) Hypoxia: Acute hypoxic respiratory failure was present on admission. This has resolved. She is now on room air (3) Asthma: No acute exacerbation suspected Albuterol PRN for cough or shortness of breath (4) Obstructive sleep apnea: Not on CPAP, diagnosed many years ago when patient weighed more. (5) GERD (gastroesophageal reflux disease): Continue pantoprazole 40 mg PO daily (6) Depression: Continue citalopram mg PO HS and bupropion mg PO QAM (7) Ulcerative colitis: Stable. Continue mesalamine mg PO QID (8) DVT prophylaxis: Lovenox 40 mg SQ twice daily Disposition: Discharged to home today, January 23, on tapering dose of oral prednisone. She will continue to take vitamin C, vitamin D, and zinc until her Covid symptoms are completely resolved. Total Time Total Time Spent Total Time Spent (In Minutes): 35 minutes Total Time Includes: Examination of the Patient, Discharge Planning and Medication Reconciliation Discharge Plan Discharge Items Patient Disposition: Home - Self-Care Reason For Visit: COVID-19 PNEUMONIA Discharge Diagnosis: Coronavirus pneumonia, acute hypoxic respiratory failure Activity: Resume your previous activity Non-emergency contact: Primary Care Provider Call non-emergency contact if: you have any medication questions and your sympt oms worsen Follow-up/Referrals: Laurie Marie DO [Primary Care Provider] - 01/30/21 9:20 am Diet: Regular Addtl Attending Provider Instructions: Take Decadron tablets in a tapering dose fashion as prescribed. Continue to take vitamin C, vitamin D, and zinc supplements until Covid symptoms are completely resolved Pending Studies at Discharge: No Stand-Alone Forms: [facility] DecisionDesk, Smoking Cessation Medications and DC Order Prescriptions: New ascorbic acid (vitamin C) [Vitamin C] 500 mg Tablet 500 mg PO QAM Qty: 14 RF: 0 cholecalciferol (vitamin D3) 25 mcg (1,000 unit) Capsule 1,000 unit PO QAM Qty: 14 RF: 0 zinc sulfate [Orazinc] 50 mg zinc (220 mg) Capsule 220 mg PO QAM Qty: 14 RF: 0 dexamethasone 6 mg tablet See Rx Instructions .ROUTE .COMPLEX Qty: 18 RF: 0 benzonatate 200 mg capsule 200 mg PO TID Qty: 20 RF: 0 Continued clindamycin phosphate 1 % lotion 1 appln TOP BID Qty: 60 RF: 2 acyclovir 5 % ointment 1 appln TOP 5XD 4 Days Qty: 15 RF: 0 benzonatate 200 mg capsule 200 mg PO TID PRN (Reason: cough) Qty: 30 RF: 0 tretinoin 0.025 % cream 1 appln topical DAILY RF: 0 spironolactone 100 mg tablet 150 mg PO HS RF: 0 citalopram 20 mg tablet 20 mg PO HS RF: 0 pantoprazole 40 mg tablet,delayed release (DR/EC) 40 mg PO DAILYBB RF: 0 bupropion HCl 150 mg tablet extended release 24 hr 150 mg PO QAM RF: 0 mesalamine 400 mg capsule (with del rel tablets) 1,600 mg PO QID RF: 0 Discharge Orders: Discharge Order (Routine); Ordered 01/23/21 Ordered By: Jose Santana Admission Data Admit Date/Time: 01/21/21 15:12 Attending Provider: Jose Santana Admit Provider: Pipo Melendez Primary Care Provider: Laurie Marie Other Providers: Pipo Melendez Other Interventions: Discharge Summary Assessment (RN) Last Done: 01/23/21 11:40 Coding Level of Care Code D/C Day Management >30 mins Diagnoses Pneumonia due to COVID-19 virus U07.1; J12.82 Hypoxia R09.02 Asthma J45.20 Asthma severity: mild Asthma persistence: intermittent Asthma complication type: uncomplicated Obstructive sleep apnea G47.33 GERD (gastroesophageal reflux disease) K21.9 Depression F32.9 Ulcerative colitis K51.90 DVT prophylaxis Z29.9
== END 2021-01-23 13:32 | disposition home or self-care (01) ==
LOC: 3W 09:57 → ED 09:57 → SUATTDRO 15:12 → 3W 17:00